=== PATIENT | female | born 1960 | race Hispanic/Latino ===

== ENCOUNTER 2019-03-01 11:29 | Emergency (ER) | payer BC ==
--- NOTE | 2019-03-01 11:57 | RAD ---
EXAM: 3 views of the right ankle HISTORY: Ankle pain COMPARISON: None FINDINGS: 3 views of the right ankle shows severe lateral soft tissue swelling. There is an avulsion fracture fragment adjacent to the tip of the lateral malleolus. No dislocation is seen. No degenerative changes are present. IMPRESSION: Small avulsion fracture fragment off the tip of the lateral malleolus.
[2019-03-01] MEDS ORDERED: HYDROcodone/Acetaminophen 10/325 mg Tablet ONE (12:21)
== END 2019-03-01 12:25 | disposition home or self-care (01) ==
LOC: ERS 11:29
DX: S82.61XA Displaced fracture of lateral malleolus of right fibula, initial encounter for closed fracture (principal); E78.5 Hyperlipidemia, unspecified; E78.00 Pure hypercholesterolemia, unspecified; Z79.899 Other long term (current) drug therapy; X50.1XXA Overexertion from prolonged static or awkward postures, initial encounter